=== PATIENT | male | born 1985 | race Caucasian/White ===

== ENCOUNTER 2018-11-01 10:20 | Inpatient (IN) | payer OTHER ==
[~2018-11-01] VITALS: Ht 187.9 cm; Wt 102.2 kg
[~2018-11-01 10:20] MED LIST: ATARAX,VISTARIL50 MG PO; CARBIDOPA/LEVOD1 TA1 PO; NO HOME MEDS; ONDANSETRON HYDR4 M1 PO; ZOFRAN 4 MG ED2 TAB PO
--- NOTE | 2018-11-01 12:03 | NUR ---
ADMITTED TO ROOM 4051 VIA NEW [facility]. VITAL SIGNS STABLE. PATIENT COMPLAINING OF BEING A ANXIOUS AND HE IS SHOWING SIGNS OF ANXIETY. ADMISSION ASSESMENT COMPLETE
--- NOTE | 2018-11-01 12:19 | NUR ---
PATIENT MEETS [facility]. CINA=17. PATIENT WANTS TO FOLLOW UP WITH [facility] FOR OUTPATIENT TREATMENT. JAYLAN DIEZ B.A. PERSONNEL CLERK
[2018-11-01 12:51] VITALS: BP 130/68
[2018-11-01 13:00] VITALS: BP 130/60
[2018-11-01 14:32] LABS: BILIRUBIN NEGATIVE (NEGATIVE); BLOOD NEGATIVE (NEGATIVE); CLARITY CLEAR (CLEAR); COLOR YELLOW (YELLOW); GLUCOSE NEGATIVE (NEGATIVE); KETONE NEGATIVE (NEGATIVE); LEUKO ESTERASE NEGATIVE (NEGATIVE); NITRITE NEGATIVE (NEGATIVE); UROBILINOGEN 0.2 E.U./dl (0.2-1.0)
[2018-11-01 14:37] LABS: BASO % 0.5 % (0.0-1.0); EOS # 0.1 10*3/uL (0.0-0.4); EOS % 0.9 % (1.0-4.0); HEMATOCRIT 43.9 % (42.0-52.0); HEMOGLOBIN 14.5 g/dl (14.0-18.0); LYMPH # 2.5 10*3/uL (1.3-4.4); LYMPH % 30.4 % (27.0-41.0); MEAN CELL VOLUME 91.1 fl (80.0-94.0); MEAN CORPUSCULAR HGB 30.1 pg (27.0-31.0); MEAN PLATELET VOLUME 9.3 fl (9.6-12.3); MONO # 0.6 10*3/uL (0.1-1.0); MONO % 7.7 % (3.0-9.0); NEUT # 4.9 10*3/uL (2.3-7.9); NEUT % 60.4 % (47.0-73.0); PLATELET COUNT AUTOMATED 280 10*3/uL (130-400); RED BLOOD COUNT 4.82 10*6/uL (4.50-5.90); RED CELL DISTRI WIDTH 12.5 % (0-14.5); WHITE BLOOD COUNT 8.1 10*3/uL (4.8-10.8)
[2018-11-01 14:43] LABS: URINE AMPHETAMINES < 1000 (1000ng/ml); URINE BARBITURATES < 200 (200ng/ml); URINE BENZODIAZEPINES < 200 (200ng/ml); URINE CANNABINOIDS (THC) > 50 (50ng/ml); URINE COCAINE < 300 (300ng/ml); URINE METHADONE < 300 (300ng/ml); URINE OPIATES > 300 (300ng/ml)
[2018-11-01 14:45] LABS: MUCOUS 1+; RBC 0-2 rbc/hpf (0-2); WBC 0-2 wbc/hpf (0-5)
[2018-11-01 14:46] LABS: URINE PHENCYCLIDINE < 25 (25ng/ml)
--- NOTE | 2018-11-01 14:49 | NUR ---
THIS PATIENT RECEIVED TYLENOL, VISTARIL,AND ROBAXIN FOR COMP[LAINTS OF HEADACHE, CRAMPS AND INCREASED ANXIETY. CALL LIGHT WITHIN REACH
[2018-11-01 14:52] LABS: ALBUMIN 3.7 gm/dl (3.1-4.5); ALKALINE PHOSPHATASE 60 U/L (45-117); BUN 10 mg/dl (7-24); CHLORIDE 103 mmol/L (98-107); CREATININE 0.74 mg/dL (0.70-1.30); POTASSIUM 3.7 mmol/L (3.5-5.1); SGOT/AST 12 IU/L (3-35); SGPT/ALT 20 U/L (12-78); SODIUM 137 mmol/L (136-145); TOTAL PROTEIN 7.4 gm/dL (6.4-8.2)
[2018-11-01 14:57] LABS: INTERNATIONAL NORM RATIO 0.9 (2.0-3.5)
[2018-11-01 16:00] VITALS: BP 139/75
--- NOTE | 2018-11-01 16:00 | NUR ---
RESTING WITH EYES CLOSED NO PROBLEMS NOTED CALL LIGHT WITHIN REACH
[2018-11-01 20:00] VITALS: BP 103/49
--- NOTE | 2018-11-01 20:48 | NUR ---
PATIENT MEDICATED FOR WITHDRAWAL SYMPTOMS,SEE EMAR. WILL MONITOR
--- NOTE | 2018-11-01 21:10 | NUR ---
PATIENT IRRITATED THAT HE IS RECIEVING A ROOMMATE. STATED "THEY TOLD ME I WOULDNT HAVE ONE." INFORMED THAT THAT IS NEVER A GUARANTEE WHEN IT COMES TO DOUBLE ROOMS. INFORMED THAT HE CAN BE MOVED TO ANOTHER DOUBLE D/T NO PRIVATE ROOMS AVAILABLE BUT THERE WAS NO GUARANTEE HE WOULDN'T RECIEVE A ROOMMATE LATER. PATIENT STATED HE WAS OK WITH MOVING ROOMS. PATIENT MOVED TO ROOM 416-2
--- NOTE | 2018-11-01 21:48 | NUR ---
PRNS APPEAR EFFECTIVE FOR WITHDRAWAL SYMPTOMS. PATIENT RESTING IN BED QUIETLY, EYES CLOSED. NO DISTRESS NOTED.
[2018-11-02] VITALS: BP 94/47
[2018-11-02 08:00] VITALS: BP 95/59
[2018-11-02 12:00] VITALS: BP 113/65
--- NOTE | 2018-11-02 14:31 | NUR ---
PATIENT IS GOING TO FOLLOW UP WITH [facility] FOR OUTPATIENT TREATMENT. PATIENT AGREES AND UNDERSTANDS HIS AFTERCARE PLAN. JAYLAN DIEZ B.A. DIRECTOR MOBILE
[2018-11-02 16:00] VITALS: BP 114/69
[2018-11-02 20:00] VITALS: BP 117/81
--- NOTE | 2018-11-02 21:12 | NUR ---
PATIENT MEDICATED WITH CATAPRES AND REQUIP FOR C/O OF ANIXETY AND RESTLESS LEGS. WILL CHECK EFFECTIVENESS.
[2018-11-03] VITALS: BP 94/50
--- NOTE | 2018-11-03 02:10 | NUR ---
Patient sleeping. Respirations relaxed and easy. Siderails up . [place] on. DANIEL DAVEY
[2018-11-03 08:00] VITALS: BP 119/68
--- NOTE | 2018-11-03 08:42 | NUR ---
PT MEDICATED WITH PRN VISTARIL FOR C/O ANXIETY. WILL MONITOR FOR EFFECTIVENESS.
--- NOTE | 2018-11-03 09:30 | NUR ---
PT ASLEEP IN BED AT THIS TIME. NO S/S OF DISTRESS NOTED. PRN VISTARIL EFFECTIVE.
[2018-11-03 12:00] VITALS: BP 112/66
[2018-11-03 16:00] VITALS: BP 92/46
--- NOTE | 2018-11-03 19:51 | NUR ---
MEDICATED WITH PRN CLONIDINE FOR ANXIOUSNESS AND A NICOTINE PATCH. PREVIOUS PATCH FELL OFF IN SHOWER.
[2018-11-03 20:00] VITALS: BP 113/71
--- NOTE | 2018-11-04 00:24 | NUR ---
PATIENT C/O SLEEPLESSNESS BUT REFUSING TRAZADONE. DR GRAHAM MADE AWARE.
--- NOTE | 2018-11-04 00:37 | NUR ---
MEDICATED WITH PRN BENEDRYL PER ORDER FOR C/O SLEEPLESSNESS
--- NOTE | 2018-11-04 01:58 | NUR ---
PATIENT RESTING WITH EYES CLOSED. MEDICATION SEEMS EFFECTIVE
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
[2018-11-04] MEDS ORDERED: CHLORDIAZEPOXID25 MG PO (09:49)
[2018-11-04] MEDS ORDERED: 'CLONIDINE0.1 MG PO (09:52)
--- NOTE | 2018-11-04 10:13 | NUR ---
Dr. Foote in to [facility]. Order for discharge recieved. INstruction given. Discharged to home.
== END 2018-11-04 10:13 | disposition home or self-care (01) | DRG 773 ==
LOC: 4E 10:20
PROVIDERS: Internal Medicine; ADMIT Internal Medicine
DX: F11.23 Opioid dependence with withdrawal (principal); F13.10 Sedative, hypnotic or anxiolytic abuse, uncomplicated; F41.1 Generalized anxiety disorder; F17.210 Nicotine dependence, cigarettes, uncomplicated; Z71.51 Drug abuse counseling and surveillance of drug abuser; Z71.6 Tobacco abuse counseling

== ENCOUNTER 2019-06-19 12:20 | Inpatient (IN) | payer OTHER ==
[~2019-06-19] VITALS: Ht 187.9 cm; Wt 99.8 kg
[~2019-06-19 12:20] MED LIST changes: +'CLONIDINE0.1 MG PO; +CHLORDIAZEPOXID25 MG PO
--- NOTE | 2019-06-19 12:37 | NUR ---
Patient meets [facility]. CIWA(B)=24, CINA=17. Patient is going to follow up with [facility] for his aftercare plan. [facility] will also continue his benzodiazepine taper after discharge. Chery Simmons B.A. Studio Assistant
[2019-06-19] MEDS ORDERED: XANAX2 M1 PO (12:58)
[2019-06-19 13:00] VITALS: BP 128/92
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
[2019-06-19 13:45] LABS: BASO # 0.1 10*3/uL (0.0-0.1); BASO % 0.7 % (0.0-1.0); EOS % 0.2 % (1.0-4.0); HEMATOCRIT 45.2 % (42.0-52.0); LYMPH % 23.3 % (27.0-41.0); MEAN CELL VOLUME 90.6 fl (80.0-94.0); MEAN CORPUSCULAR HGB 30.3 pg (27.0-31.0); MEAN CORPUSCULAR HGB CONC 33.4 g/dl (33.0-37.0); MEAN PLATELET VOLUME 10.9 fl (9.6-12.3); MONO # 0.8 10*3/uL (0.1-1.0); NEUT # 5.7 10*3/uL (2.3-7.9); NEUT % 66.6 % (47.0-73.0); PLATELET COUNT AUTOMATED 224 10*3/uL (130-400); RED BLOOD COUNT 4.99 10*6/uL (4.50-5.90); RED CELL DISTRI WIDTH 12.1 % (0-14.5); WHITE BLOOD COUNT 8.6 10*3/uL (4.8-10.8)
[2019-06-19 13:53] LABS: INTERNATIONAL NORM RATIO 0.9 (2.0-3.5)
[2019-06-19 14:02] LABS: ALBUMIN 4.2 gm/dl (3.1-4.5); ALKALINE PHOSPHATASE 58 U/L (45-117); BUN 15 mg/dl (7-24); CHLORIDE 104 mmol/L (98-107); CREATININE 0.86 mg/dL (0.70-1.30); POTASSIUM 4.3 mmol/L (3.5-5.1); SGOT/AST 20 IU/L (3-35); SGPT/ALT 25 U/L (12-78); SODIUM 136 mmol/L (136-145)
[2019-06-19 14:04] LABS: URINE AMPHETAMINES < 1000 (1000ng/ml); URINE BARBITURATES < 200 (200ng/ml); URINE BENZODIAZEPINES < 200 (200ng/ml); URINE CANNABINOIDS (THC) > 50 (50ng/ml); URINE COCAINE < 300 (300ng/ml); URINE METHADONE < 300 (300ng/ml); URINE OPIATES > 300 (300ng/ml)
[2019-06-19 14:13] LABS: URINE PHENCYCLIDINE < 25 (25ng/ml)
[2019-06-19 14:13] LABS: ETHYL ALCOHOL < 3.0 mg/dl (<3)
--- NOTE | 2019-06-19 14:35 | NUR ---
PRN NICOTINE PATCH PLACED REQUESTED. WILL MONITOR.
[2019-06-19 16:00] VITALS: BP 108/56
--- NOTE | 2019-06-19 17:46 | NUR ---
PT RESTING IN BED WITH EYES CLOSED. NO ACUTE DISTRESS NOTED. CALL LIGHT WITHIN REACH. WILL CONTINUE TO MONITOR.
[2019-06-19 20:00] VITALS: BP 122/54
--- NOTE | 2019-06-19 20:12 | NUR ---
PRN REQUIP AND ROBAXIN GIVEN FOR PT COMPLAINTS OF RESTLESS LEGS AND MUSCLE ACHES. CALL LIGHT WITHIN REACH, WILL MONITOR
--- NOTE | 2019-06-19 21:47 | NUR ---
PATIENT STATES EARLIER MEDICATION EFFECTIVE, NO NEW NEEDS AT THIS TIME. CALL LIGHT WITHIN REACH, WILL MONITOR
[2019-06-19 22:25] LABS: BILIRUBIN NEGATIVE (NEGATIVE); BLOOD NEGATIVE (NEGATIVE); CLARITY SL CLOUDY (CLEAR); COLOR YELLOW (YELLOW); GLUCOSE NEGATIVE (NEGATIVE); KETONE NEGATIVE (NEGATIVE); SPECIFIC GRAVITY 1.015 (1.005-1.030)
[2019-06-19 22:26] LABS: LEUKO ESTERASE NEGATIVE (NEGATIVE); NITRITE NEGATIVE (NEGATIVE); UROBILINOGEN 0.2 E.U./dl (0.2-1.0)
[2019-06-19 22:36] LABS: RBC 0-2 rbc/hpf (0-2); WBC 0-2 wbc/hpf (0-5)
[2019-06-20] VITALS: BP 112/65
--- NOTE | 2019-06-20 01:04 | NUR ---
24 HR chart check completed.
--- NOTE | 2019-06-20 01:07 | NUR ---
LIBRIUM ADMINSITERED. PATIENT DENIES ANY OTHER NEEDS. ENCOURAGED PATIENT TO ASK FOR PRN'S WHEN NEEDED. PATIENT VERBAZLIED UNDERSTANDING, CALL LIGHT WITHIN REACH
--- NOTE | 2019-06-20 02:34 | NUR ---
PATIENT SLEEPING, NO DISTRESS NOTED, CALL LIGHT WITHIN REACH, WILL MONITOR
--- NOTE | 2019-06-20 05:33 | NUR ---
SUBUTEX GIVEN, PT DENIES ANY NEED FOR PRN'S. NO OTHER COMPLAINTS. CALL LIGHT WITHIN REACH, WILL MONITOR
--- NOTE | 2019-06-20 07:44 | NUR ---
24 HR chart check completed.
[2019-06-20 08:00] VITALS: BP 92/54
--- NOTE | 2019-06-20 08:50 | NUR ---
PT IS RESTING COMFORTABLY IN BED WITH NO SIGNS OF DISTRESS. PT STATED HE WAS OKAY AND THAT HE JUST WANTED TO REST.
--- NOTE | 2019-06-20 15:27 | NUR ---
[facility] STAFF IN TO SEE PATIENT. PATIENT IS STILL WANTING TO FOLLOW UP WITH [facility] FOR HIS AFTERCARE PLAN. JAYLAN DIEZ B.A. SERVICE CONTROL OPERATOR
[2019-06-20 16:00] VITALS: BP 127/75
[2019-06-20 20:00] VITALS: BP 103/49
--- NOTE | 2019-06-20 21:31 | NUR ---
SUBUTEX GIVEN AT THIS TIME. PATIENT DENIES ANY NEEDS. REQUESTED APPLE JUICE. DENIES NEED FOR PRN MEDICATION. CALL LIGHT WITHIN REACH, WILL MONITOR
--- NOTE | 2019-06-20 22:32 | NUR ---
24 HR chart check completed.
--- NOTE | 2019-06-21 04:36 | NUR ---
Patient resting quietly with no c/o discomfort. Respirations easy and regular. Vital signs stable. No overt distress. SILVINO DAMON
--- NOTE | 2019-06-21 04:48 | NUR ---
24 HR chart check completed.
[2019-06-21 08:00] VITALS: BP 116/74
--- NOTE | 2019-06-21 09:35 | NUR ---
PT RESTING IN BED. REQUESTS NICOTINE GUM. NO OTHER COMPLAINTS AT THIS TIME.
--- NOTE | 2019-06-21 09:35 | NUR ---
PT PROVIDED NICOTINE GUM.
--- NOTE | 2019-06-21 10:24 | NUR ---
PATIENT IS GOING TO FOLLOW UP WITH [facility] IN [place] FOR HIS AFTERCARE PLAN. PATIENT'S APPOINTMENT IS MONDAY, June AT 10AM. [place] STAFF WILL REVIEW HIS AFTERCARE PLAN BEFORE BEING DISCHARGED FROM SERVICE. PATIENT HAS TRANSPORATION HOME. PATIENT AGREES AND UNDERSTANDS HIS AFTERCARE PLAN. JAYLAN DIEZ B.A. GENERAL MANAGER LAND DEPARTMENT
[2019-06-21 12:00] VITALS: BP 110/70
[2019-06-21 16:00] VITALS: BP 100/53
--- NOTE | 2019-06-21 17:53 | NUR ---
SCHEDULED SUBUTEX GIVEN. PT DENIES NEED FOR PRN
--- NOTE | 2019-06-21 19:38 | NUR ---
SCHEDULED LIBRIUM GIVEN TO PT. NICOTINE GUM ALSO TAKEN TO PATIENT. PT. VOICES NO C/O AT THIS TIME. CALL LIGHT WITHIN REACH.
[2019-06-21 20:00] VITALS: BP 88/47
[2019-06-22] VITALS: BP 89/45
--- NOTE | 2019-06-22 | NUR ---
RESTING IN BED WITH EYES CLOSED; RESPIRATIONS EASY & UNLABORED. CALL LIGHT WITHIN REACH.
--- NOTE | 2019-06-22 06:00 | NUR ---
TOOK PO MED WITHOUT DIFFICULTY. REFUSING BLOOD WORK AT THIS TIME.
--- NOTE | 2019-06-22 07:45 | NUR ---
IN PT ROOM TO COMPLETE ASSESSMENT. PT IS SLEEPING AND AWAKENS EASILY. HE STATES HE HAS NO COMPLAITS ASIDE FROM WITHDRAWLING. CALL LIGHT WITHIN REACH, WILL CONTINUE TO MONITOR
[2019-06-22 08:00] VITALS: BP 128/61
--- NOTE | 2019-06-22 09:26 | NUR ---
IN TO GO TO PATIENT ROOM AT THIS TIME AND PATIENT IS GONE
--- NOTE | 2019-06-22 10:00 | NUR ---
NO IV WAS IN THE PATIENT AND THERE WAS NO PHYTOPATHOLOGY TEACHER EITHER
--- NOTE | 2019-06-22 10:01 | NUR ---
CALLED DR DICKENS TO LET HIM KNOW THE PATIENT LEFT AMA
--- NOTE | 2019-06-22 11:04 | NUR ---
CALLED DR DICKENS AND HE STATES I CAN PUT IN DISCHARGE ORDER
== END 2019-06-22 10:01 | disposition left against medical advice (07) | DRG 770 ==
LOC: 4E 12:20
PROVIDERS: Internal Medicine; ADMIT Family Medicine
DX: F11.23 Opioid dependence with withdrawal (principal); F13.10 Sedative, hypnotic or anxiolytic abuse, uncomplicated; F41.9 Anxiety disorder, unspecified; F17.210 Nicotine dependence, cigarettes, uncomplicated; Z53.29 Procedure and treatment not carried out because of patient's decision for other reasons; Z71.6 Tobacco abuse counseling; Z79.899 Other long term (current) drug therapy

== ENCOUNTER 2019-07-29 13:24 | Inpatient (IN) | payer OTHER ==
[~2019-07-29] VITALS: Ht 190.5 cm; Wt 102.1 kg
[~2019-07-29 13:24] MED LIST changes: +XANAX2 M1 PO
--- NOTE | 2019-07-29 15:00 | NUR ---
DR MISHRA CALLED AND NOTIFIED OF PT HERE AND NEEDING ORDERS
--- NOTE | 2019-07-29 15:20 | NUR ---
A 34, admitted to , under the services of FABIANO Villegas DO with a diagnosis of OPIATE / ETOH WITHDRAWAL. Chief complaint is WITHDRAWAL. Patient arrived via stretcher from [place]. Monitor applied. Initial assessment completed. Vital signs taken and recorded. FABIANO VILLEGAS DO notified of admission to the unit. Orders received. See assessment for past medical history, medications and allergies. Patient and/or family oriented to unit. [facility] visitation policy reviewed. Clothing/patient valuable form completed. CHRIS WRIGHT
[2019-07-29 15:30] VITALS: BP 132/78
[2019-07-29 16:02] LABS: BASO # 0.1 10*3/uL (0.0-0.1); BASO % 0.6 % (0.0-1.0); EOS # 0.1 10*3/uL (0.0-0.4); EOS % 0.5 % (1.0-4.0); HEMATOCRIT 42.6 % (42.0-52.0); LYMPH # 1.9 10*3/uL (1.3-4.4); LYMPH % 20.1 % (27.0-41.0); MEAN CELL VOLUME 94.5 fl (80.0-94.0); MEAN CORPUSCULAR HGB 30.8 pg (27.0-31.0); MEAN CORPUSCULAR HGB CONC 32.6 g/dl (33.0-37.0); MEAN PLATELET VOLUME 9.7 fl (9.6-12.3); MONO # 0.8 10*3/uL (0.1-1.0); MONO % 8.3 % (3.0-9.0); NEUT # 6.7 10*3/uL (2.3-7.9); NEUT % 70.2 % (47.0-73.0); PLATELET COUNT AUTOMATED 266 10*3/uL (130-400); RED BLOOD COUNT 4.51 10*6/uL (4.50-5.90); RED CELL DISTRI WIDTH 12.4 % (0-14.5); WHITE BLOOD COUNT 9.5 10*3/uL (4.8-10.8)
[2019-07-29 16:11] LABS: INTERNATIONAL NORM RATIO 0.9 (2.0-3.5)
[2019-07-29 16:18] LABS: ALBUMIN 3.6 gm/dl (3.1-4.5); ALKALINE PHOSPHATASE 58 U/L (45-117); BUN 13 mg/dl (7-24); CHLORIDE 105 mmol/L (98-107); POTASSIUM 4.2 mmol/L (3.5-5.1); SGOT/AST 14 IU/L (3-35); SGPT/ALT 22 U/L (12-78); SODIUM 138 mmol/L (136-145); TOTAL PROTEIN 7.1 gm/dL (6.4-8.2)
[2019-07-29 16:20] LABS: ETHYL ALCOHOL < 3.0 mg/dl (<3)
--- NOTE | 2019-07-29 16:20 | NUR ---
IV started MARKOS with #22 protective cath after 2 attempts. Site prepped with Chloroprep. Sterile dressing applied. Patient tolerated procedure well. STARTED BY EMPERATRIZ Davies LYNN
--- NOTE | 2019-07-29 16:39 | NUR ---
PT MEDICATED WTIH ATIVAN FOR RESTLESSNESS, ANXIETY WILL MONITOR
--- NOTE | 2019-07-29 16:50 | NUR ---
PATIENT MEETS [facility]. CIWA =19,CINA=16. PATIENT WANTS TO FOLLOW UP WITH [facility] FOR THE VIVITROL SHOT. JYALAN DIEZ B.A. AUTO ELECTRICAL TECHNICIAN
--- NOTE | 2019-07-29 17:00 | NUR ---
PT RESTING IN BED./ EYES CLOSED. ATIVAN APPEARS EFFECTIVE. WILL MONITOR
[2019-07-29 17:10] LABS: BILIRUBIN NEGATIVE (NEGATIVE); BLOOD NEGATIVE (NEGATIVE); CLARITY CLOUDY (CLEAR); COLOR YELLOW (YELLOW); GLUCOSE NEGATIVE (NEGATIVE); KETONE NEGATIVE (NEGATIVE); LEUKO ESTERASE NEGATIVE (NEGATIVE); NITRITE NEGATIVE (NEGATIVE); PH 8.5 (5.0-9.0); UROBILINOGEN 0.2 E.U./dl (0.2-1.0)
[2019-07-29 19:13] LABS: URINE AMPHETAMINES < 1000 (1000ng/ml); URINE BARBITURATES > 200 (200ng/ml); URINE BENZODIAZEPINES < 200 (200ng/ml); URINE CANNABINOIDS (THC) > 50 (50ng/ml); URINE COCAINE < 300 (300ng/ml); URINE METHADONE < 300 (300ng/ml); URINE OPIATES > 300 (300ng/ml)
[2019-07-29 19:17] LABS: URINE PHENCYCLIDINE < 25 (25ng/ml)
--- NOTE | 2019-07-29 19:46 | NUR ---
24 HR chart check completed.
[2019-07-29 20:00] VITALS: BP 142/86
--- NOTE | 2019-07-29 20:00 | NUR ---
SLEEPING. NO ACUTE DISTRESS NOTED. RESPIRATIONS EASY. LUNGS DIMINISHED, CLEAR. PULSE OX 95% RA. MVI INFUSING PER ORDER. CALL LIGHT WITHIN REACH. NO VOICED COMPLAINTS
--- NOTE | 2019-07-29 21:20 | NUR ---
Patient displaying withdrawal symptoms, including: irritability, anxiousness, restlessness and agitation. Scheduled/PRN medications provided, SEE EMAR. Will continue to monitor medication effectiveness.
--- NOTE | 2019-07-29 22:00 | NUR ---
Patient resting. Responding to scheduled medications with fewer complaints of pain and anxiety.
[2019-07-30] VITALS: BP 124/63
--- NOTE | 2019-07-30 | NUR ---
SLEEPING. NO DISTRESS NOTED. RESPIRATIONS EASY. VSS. MVI MAINTAINED. CALL LIGHT WITHIN REACH
--- NOTE | 2019-07-30 03:29 | NUR ---
MEDICATED WITH ROUTINE MEDS TO ASSIST WITH WITHDRAWAL, SEE EMAR
[2019-07-30 04:00] VITALS: BP 128/70
--- NOTE | 2019-07-30 04:15 | NUR ---
Patient resting. Responding to scheduled medications with fewer complaints of pain and anxiety.
[2019-07-30 08:00] VITALS: BP 129/84
--- NOTE | 2019-07-30 08:34 | NUR ---
SCHEDULED LIBRIUM ADMINISTERED AT THIS TIME PER ORDER. PT DENIES ANY PAIN/DISCOMFORT AT THIS TIME. VSS. WILL CONTINUE TO MONITOR. CALL LIGHT WITHIN REACH.
--- NOTE | 2019-07-30 08:38 | NUR ---
NICOTROL INHALER PROVIDED PER PRN ORDER FOR C/O NICOTINE WITHDRAWAL. WILL MONITOR. CALL LIGHT WITHIN REACH.
--- NOTE | 2019-07-30 09:34 | NUR ---
Patient resting. Responding to scheduled medications with fewer complaints of pain and anxiety.
--- NOTE | 2019-07-30 11:54 | NUR ---
PATIENT'S AFTERCARE PLAN REMAINS THE SAME. PATIENT WILL BE FOLLOWING WITH [facility] FOR THE VIVITROL SHOT. JAYLAN DIEZ B.A. METEOROLOGICAL ENGINEER
[2019-07-30 12:00] VITALS: BP 120/76
--- NOTE | 2019-07-30 13:11 | NUR ---
PT CONTINUES TO SLEEP. NO VOICED COMPLAINTS. PT DENIES ANY NEED FOR PRN MEDS. WILL CONTINUE TO MONITOR. HR 48 PER CM. CALL LIGHT WITHIN REACH.
--- NOTE | 2019-07-30 15:32 | NUR ---
PT MEDICATED WITH PO ROBAXIN, MOTRIN AND VISTARIL PER PRN ORDER FOR C/O MUSCLE ACHES AND ANXIETY. WILL MONITOR EFFECTIVENESS.
[2019-07-30 16:00] VITALS: BP 121/58
--- NOTE | 2019-07-30 16:32 | NUR ---
Patient resting. Responding to scheduled medications with fewer complaints of pain and anxiety.
--- NOTE | 2019-07-30 17:06 | NUR ---
ROUTINE LIBRIUM AND SUBUTEX ADMINISTERED PER ORDER. WILL CONTINUE TO MONITOR.
--- NOTE | 2019-07-30 18:06 | NUR ---
Patient resting. Responding to scheduled medications with fewer complaints of pain and anxiety.
--- NOTE | 2019-07-30 19:32 | NUR ---
24 HR chart check completed.
[2019-07-30 20:00] VITALS: BP 105/69
--- NOTE | 2019-07-30 22:59 | NUR ---
Patient resting. Responding to scheduled medications with fewer complaints of pain and anxiety.
[2019-07-31] VITALS: BP 114/63
--- NOTE | 2019-07-31 | NUR ---
SLEEPING. RESPIRATIONS EASY. VSS. CALL LIGHT WITHIN REACH
--- NOTE | 2019-07-31 02:30 | NUR ---
MEDICATED WITH ROUTINE MEDS TO ASSIST WITH WITHDRAWAL, SEE EMAR. WILL MONITOR
--- NOTE | 2019-07-31 03:11 | NUR ---
Patient resting. Responding to scheduled medications with fewer complaints of pain and anxiety.
--- NOTE | 2019-07-31 06:00 | NUR ---
Patient SLEEPING. Responding to scheduled medications with fewer complaints of pain and anxiety.
--- NOTE | 2019-07-31 07:45 | NUR ---
PHARMACY RETAIL SUPPORT SPECIALIST REMOVED PER ORDER. PT ENCOURAGED TO SHOWER TODAY.
--- NOTE | 2019-07-31 07:58 | NUR ---
ROBAXIN AND VISTARIL ADMINISTERED AT THIS TIME PER PRN ORDER FOR C/O MUSCLE ACHES AND ANXIETY. WILL MONITOR EFFECTIVENESS.
[2019-07-31 08:00] VITALS: BP 130/82
--- NOTE | 2019-07-31 08:06 | NUR ---
WICHO DEMPSEY IN TO SEE PATIENT THIS AM.
--- NOTE | 2019-07-31 08:14 | NUR ---
ATIVAN 1MG PO GIVEN AT THIS TIME PER ORDER FOR INCREASED ANXIETY/RESTLESSNESS. WILL MONITOR EFFECTIVENESS. CALL LIGHT WITHIN REACH.
--- NOTE | 2019-07-31 08:58 | NUR ---
ROBAXIN AND VISTARIL EFFECTIVE AT THIS TIME.
--- NOTE | 2019-07-31 09:14 | NUR ---
ATIVAN EFFECTIVE PER PT. WILL CONTINUE TO MONITOR.
--- NOTE | 2019-07-31 09:23 | NUR ---
PT UP IN SHOWER.
--- NOTE | 2019-07-31 11:02 | NUR ---
Patient resting. Responding to scheduled medications with fewer complaints of pain and anxiety.
[2019-07-31 12:00] VITALS: BP 101/47
--- NOTE | 2019-07-31 14:14 | NUR ---
PATIENT SCHEDULED APPOINTMENT WITH [facility] IS ON July AT 10AM. PATIENT AGREES AND UNDERSTANDS HIS AFTERCARE PLAN. JAYLAN DIEZ B.A. OUTSIDE REPAIRER SPECIAL
--- NOTE | 2019-07-31 14:36 | NUR ---
PATIENT CONTINUES TO REST QUIETLY WITHOUT ANY COMPLAINTS. WILL MONITOR. CALL LIGHT WITHIN REACH.
--- NOTE | 2019-07-31 16:04 | NUR ---
Patient signed out AMA. Patient encouraged to stay and advised of possible consequences of premature discharge. Physician and petroleum inspector supervisor CHILO notified. Patient instructed what to do regarding care post-departure from the hospital; emergency phone numbers provided. Patent was accompanied by SELF. CATRINA COOLEY
== END 2019-07-31 16:04 | disposition left against medical advice (07) | DRG 770 ==
LOC: 4E 13:24
PROVIDERS: Registered Nurse; ADMIT Internal Medicine
DX: F11.23 Opioid dependence with withdrawal (principal); F41.9 Anxiety disorder, unspecified; F12.10 Cannabis abuse, uncomplicated; F10.239 Alcohol dependence with withdrawal, unspecified; F41.1 Generalized anxiety disorder; Z53.29 Procedure and treatment not carried out because of patient's decision for other reasons; Z87.891 Personal history of nicotine dependence; Z82.49 Family history of ischemic heart disease and other diseases of the circulatory system; Z83.3 Family history of diabetes mellitus